=== PATIENT | male | born 1950 | race Caucasian/White ===

== ENCOUNTER 2024-10-13 23:18 | Emergency (ER) | payer SELFPAY ==
[~2024-10-13] VITALS: Ht 167.6 cm; Wt 70.0 kg
[2024-10-13 23:26] VITALS: O2SAT 98
[2024-10-14 00:17] LABS: BASOPHILS % 0.8 % (0.0-2.0); EOSINOPHILS % 5.2 % (0.0-5.0); HEMATOCRIT. 36.3 % (42.0-52.0); HEMOGLOBIN. 12.3 g/dL (14.0-18.0); LYMPHOCYTES % 31.6 % (20.0-50.0); MEAN CORPUSCULAR HEMOGLOBIN 32.8 pg (28.0-32.0); MEAN CORPUSCULAR VOLUME 96.5 fL (80.0-94.0); MEAN PLATELET VOLUME 8.4 fl (7.4-10.4); MONOCYTES % 10.5 % (2.0-8.0); NEUTROPHILS % 51.9 % (40.0-76.0); PLATELET 199 x1000/uL (130-400); RED BLOOD CELL COUNT 3.76 mill/uL (4.7-6.1)
[2024-10-14 00:18] LABS: POTASSIUM 4.2 mEq/L (3.5-5.1)
[2024-10-14 00:19] LABS: CALCIUM 9.1 mg/dL (8.7-10.4)
[2024-10-14 00:24] LABS: CREATININE 1.6 mg/dL (0.6-1.3)
[2024-10-14 01:10] VITALS: BP 124/73; PULSE 72; RESP 18; TEMP 36.7; O2SAT 98
== END 2024-10-14 01:10 | disposition home or self-care (01) ==
LOC: ER 23:18
DX: F10.129 Alcohol abuse with intoxication, unspecified (principal); Z86.73 Personal history of transient ischemic attack (TIA), and cerebral infarction without residual deficits; Y90.8 Blood alcohol level of 240 mg/100 ml or more
CPT/HCPCS: 36415; 80048; 80320; 85025; 99283; G0480